=== PATIENT | female | born 1965 | race Caucasian/White ===

== ENCOUNTER 2019-01-14 10:23 | Observation (INO) | payer BC ==
[~2019-01-14] VITALS: Ht 157.5 cm; Wt 104.0 kg
--- NOTE | ~2019-01-14 | EKG ---
[place], [place] ELECTROCARDIOGRAM REPORT NAME: ODALIS CELIS UNIT #: [id number] ROOM: 406 DOCTOR: CARLOS DRAFT REPORT BIRTHDATE: [birth year] [facility] Test Date: 2019-01-14 Test Time: 10:22:58 Pat Name: ODALIS CELIS Department: Room: 406 Gender: F Order Puller: : 1965 Requested By: JULITO BELL Order Number: [id number] Reading MD: Eleazar Palacios MD Measurements Intervals [place] Rate: 102 P: 47 NH: 166 QRS: -11 QRSD: 91 T: 22 QT: 345 QTc: 450 Interpretive Statements Sinus tachycardia Left atrial enlargement Low voltage, precordial leads Consider anterior infarct Baseline wander in lead(s) V4 No previous ECG available for comparison Electronically Signed On 01-15-2019 10:12:22 PDT by Eleazar Palacios MD CM:EKGRPT:ELECTROCARDIOGRAM REPORT 1022 1012 JULITO BELL EPIPHANY DRAFT REPORT JULITO BELL
--- NOTE | ~2019-01-14 | EKG ---
[place], [place] ELECTROCARDIOGRAM REPORT NAME: ODALIS CELIS UNIT #: [id number] ROOM: 406 DOCTOR: CARLOS DRAFT REPORT BIRTHDATE: [birth year] [facility] Test Date: 2019-01-14 Test Time: 12:51:22 Pat Name: ODALIS CELIS Department: Room: 406 Gender: F Patient Resource Specialist: : 1965 Requested By: JULITO BELL Order Number: [id number] Reading MD: Eleazar Palacios MD Measurements Intervals [place] Rate: 65 P: -7 NV: 152 QRS: -18 QRSD: 94 T: 0 QT: 401 QTc: 417 Interpretive Statements Sinus rhythm Inferior infarct, old Consider anterior infarct No previous ECG available for comparison Electronically Signed On 01-15-2019 10:13:52 PDT by Eleazar Palacios MD CM:EKGRPT:ELECTROCARDIOGRAM REPORT 1251 1013 JULITO BELL EPIPHANY DRAFT REPORT JULITO BELL
--- NOTE | ~2019-01-14 | EKG ---
[place], [place] ELECTROCARDIOGRAM REPORT NAME: ODALIS CELIS UNIT #: [id number] ROOM: 406 DOCTOR: LEYDAANY DRAFT REPORT BIRTHDATE: [birth year] [facility] Test Date: 2019-01-14 Test Time: 16:11:00 Pat Name: ODALIS CELIS Department: Room: 406 Gender: F Tapper Operator: : 1965 Requested By: JULITO BELL Order Number: [id number] Reading MD: Eleazar Palacios MD Measurements Intervals [employer] Rate: 67 P: 2 NH: 163 QRS: -21 QRSD: 89 T: 11 QT: 395 QTc: 417 Interpretive Statements Sinus rhythm Inferior infarct, old Electronically Signed On 01-15-2019 10:17:36 PDT by Eleazar Palacios MD CM:EKGRPT:ELECTROCARDIOGRAM REPORT 1611 1017 JULITO BELL EPIPHANY DRAFT REPORT JULITO BELL
[2019-01-14 10:27] VITALS: BP 150/89
[2019-01-14 10:34] LABS: BASO % 0.6 % (0.0-1.0); EOS # 0.1 10*3/uL (0.0-0.4); EOS % 1.3 % (1.0-4.0); HEMATOCRIT 41.6 % (37.0-47.0); HEMOGLOBIN 13.2 g/dl (12.0-16.0); LYMPH # 1.9 10*3/uL (1.3-4.4); LYMPH % 28.4 % (27.0-41.0); MEAN CELL VOLUME 92.4 fl (81.0-99.0); MEAN CORPUSCULAR HGB 29.3 pg (27.0-31.0); MEAN CORPUSCULAR HGB CONC 31.7 g/dl (33.0-37.0); MEAN PLATELET VOLUME 10.2 fl (9.6-12.3); MONO # 0.6 10*3/uL (0.1-1.0); MONO % 9.3 % (3.0-9.0); NEUT # 4.1 10*3/uL (2.3-7.9); PLATELET COUNT AUTOMATED 206 10*3/uL (130-400); RED CELL DISTRI WIDTH 13.5 % (0-14.5); WHITE BLOOD COUNT 6.8 10*3/uL (4.8-10.8)
[2019-01-14 10:45] LABS: ACT PARTIAL THROMBO TIME 27.8 SECONDS (20.0-32.1); INTERNATIONAL NORM RATIO 0.9 (2.0-3.5)
[2019-01-14 10:51] LABS: ALKALINE PHOSPHATASE 84 U/L (45-117); BUN 15 mg/dl (7-24); CHLORIDE 104 mmol/L (98-107); CREATININE 0.78 mg/dL (0.55-1.02); POTASSIUM 3.6 mmol/L (3.5-5.1); SGOT/AST 12 IU/L (3-35); SGPT/ALT 30 U/L (12-78); SODIUM 136 mmol/L (136-145); TOTAL PROTEIN 7.3 gm/dL (6.4-8.2)
[2019-01-14 10:57] LABS: TROPONIN I < 0.015 ng/ml (<0.045)
--- NOTE | 2019-01-14 11:10 | NUR ---
PATIENT DENIES ANY WOUNDS A&OX4.
--- NOTE | 2019-01-14 12:14 | NUR ---
PATIENT IS AT CT AT THIS TIME.
[2019-01-14 12:53] VITALS: BP 131/68
--- NOTE | 2019-01-14 13:10 | NUR ---
FLOOR NOTIFIED OF PATIENT TO COME TO FLOOR NOW. THIS PATIENT TAKEN UP BY THIS NURSE.
--- NOTE | 2019-01-14 13:30 | NUR ---
A 54, admitted to , under the services of FRANSICO Rasmussen DO with a diagnosis of CHEST PAIN. Chief complaint is SHORT OF BREATH. Patient arrived via stretcher from ER. Monitor applied. Initial assessment completed. Vital signs taken and recorded. FRANSICO RASMUSSEN DO notified of admission to the unit. Orders received. See assessment for past medical history, medications and allergies. Patient and/or family oriented to unit. [facility] visitation policy reviewed. Clothing/patient valuable form completed. TI DAWSON
[2019-01-14] MEDS ORDERED: SYNTHROID25 MCG PO (14:09)
[2019-01-14] MEDS ORDERED: CLARITIN10 MG PO (14:10)
[2019-01-14] MEDS ORDERED: FISH OIL 1,0001 EAC4 PO (14:10)
[2019-01-14] MEDS ORDERED: ONE DAILY WOME1 EACH PO (14:10)
[2019-01-14 16:00] VITALS: BP 128/86
--- NOTE | 2019-01-14 16:42 | NUR ---
MEDICATED WITH PRN TYLENOL FOR C/O HEADACHE.
[2019-01-14 20:00] VITALS: BP 138/70; BP 138/72
--- NOTE | 2019-01-14 20:01 | NUR ---
PATIENT A&OX3. DENIES CHEST PAIN AND SHORTNESS OF BREATH. PATIENT HAS NO COMPLAINTS AT THIS TIME. WILL MONITOR.
[2019-01-15] VITALS: BP 134/78
--- NOTE | 2019-01-15 00:17 | NUR ---
PATIENT REQUESTING TYLENOL FOR GENERAL ACHES AND TO HELP HER SLEEP. ADMINISTERED PRESCRIBED. WILL MONITOR FOR EFFECTIVENESS.
[2019-01-15 06:17] LABS: BASO # 0.1 10*3/uL (0.0-0.1); BASO % 0.8 % (0.0-1.0); EOS # 0.4 10*3/uL (0.0-0.4); EOS % 5.2 % (1.0-4.0); HEMATOCRIT 41.8 % (37.0-47.0); HEMOGLOBIN 13.1 g/dl (12.0-16.0); LYMPH # 1.8 10*3/uL (1.3-4.4); LYMPH % 25.9 % (27.0-41.0); MEAN CELL VOLUME 93.5 fl (81.0-99.0); MEAN CORPUSCULAR HGB 29.3 pg (27.0-31.0); MEAN CORPUSCULAR HGB CONC 31.3 g/dl (33.0-37.0); MEAN PLATELET VOLUME 10.7 fl (9.6-12.3); MONO # 0.6 10*3/uL (0.1-1.0); MONO % 8.9 % (3.0-9.0); NEUT # 4.2 10*3/uL (2.3-7.9); NEUT % 58.9 % (47.0-73.0); PLATELET COUNT AUTOMATED 219 10*3/uL (130-400); RED BLOOD COUNT 4.47 10*6/uL (4.10-5.10); RED CELL DISTRI WIDTH 13.6 % (0-14.5); WHITE BLOOD COUNT 7.1 10*3/uL (4.8-10.8)
[2019-01-15 06:43] LABS: ALBUMIN 3.6 gm/dl (3.1-4.5); ALKALINE PHOSPHATASE 74 U/L (45-117); BUN 11 mg/dl (7-24); CHLORIDE 106 mmol/L (98-107); CHOLESTEROL 211 mg/dL (<200); CREATININE 0.68 mg/dL (0.55-1.02); FREE T4 0.94 ng/dl (0.76-1.46); HDL CHOLESTEROL 40 mg/dl (40-60); LDL CHOLESTEROL 142 mg/dL (9-159); PHOSPHOROUS 3.5 mg/dL (2.5-4.9); POTASSIUM 3.8 mmol/L (3.5-5.1); SGOT/AST 16 IU/L (3-35); SGPT/ALT 29 U/L (12-78); SODIUM 139 mmol/L (136-145); TOTAL PROTEIN 6.8 gm/dL (6.4-8.2); TRIGLYCERIDES 143 mg/dl (<150); VLDL CHOLESTEROL 29 mg/dL (6-40)
[2019-01-15 07:29] LABS: VITAMIN D, 25-HYDROXY 21.2 ng/mL (30-100)
[2019-01-15 08:00] VITALS: BP 142/84
[2019-01-15] MEDS ORDERED: Vitamin D PO (08:29)
--- NOTE | 2019-01-15 09:00 | NUR ---
Throat Cutter in to talk to patient. Patient states lives at home with . There are few steps in the home. Physician: out of state Pharmacy: out of state Home health services: none Patient's level of ADLs: INDEPENDENT Patient has working utilities: all working DME: n one Follow-up physician's appointment after d/c: will be made by hospitalist nurse director upon discharge Does patient want to access PORTAL?: no Discharge plan discussed with patient, she lives out of state and is here visiting, she is independent in adls and ambulation, she states she will be returning home when medically stable, patient states she is hoping to be discharged today, case management will follow. TALI TREVIÑO
--- NOTE | 2019-01-15 09:38 | NUR ---
Discharge instructions reviewed with patient/family. Patient receptive and verbalizes understanding. Follow-up care arranged. Written instructions given to patient/family. Patient was educated on new prescriptions and to follow up with family physician. Per patient request, a copy of her labs were printed. Patient ambulated from unit with all personal belongings accounted for. ODALIS LEE
== END 2019-01-15 09:38 | disposition home or self-care (01) ==
LOC: ED 10:23 → 4E 12:30 → EDHOLD 12:30 → 5E 12:58 → 4E 13:11
PROVIDERS: Emergency Medicine; Registered Nurse; ADMIT Emergency Medicine
DX: R07.89 Other chest pain (principal); E03.9 Hypothyroidism, unspecified; E66.01 Morbid (severe) obesity due to excess calories; J30.9 Allergic rhinitis, unspecified; Z87.891 Personal history of nicotine dependence; Z68.41 Body mass index [BMI] 40.0-44.9, adult